=== PATIENT | female | born 2000 | race Hispanic/Latino ===

== ENCOUNTER 2021-06-24 21:59 | Emergency (ER) | payer SELFPAY ==
[2021-06-24] MEDS ORDERED: Lidocaine Viscous Sol 2% 15 ml UD Cup ONE (22:49)
[2021-06-24] MEDS ORDERED: Mag-Al Plus 1200 MG/1200 MG/120 MG/30 ML UDCUP ONE (22:49)
== END 2021-06-25 00:20 | disposition home or self-care (01) ==
LOC: CSHERS 21:59
DX: R10.13 Epigastric pain (principal)
CPT/HCPCS: 93005

== ENCOUNTER 2022-05-23 11:20 | Emergency (ER) | payer SELFPAY | END 2022-05-23 13:05 | disposition home or self-care (01) | LOC: CSHERS 11:20 | DX: K02.9 Dental caries, unspecified (principal); F17.200 Nicotine dependence, unspecified, uncomplicated | CPT/HCPCS: 99282 ==